=== PATIENT | female | born 1945 | race African-American/Black ===

== ENCOUNTER 2017-11-08 21:29 | Emergency (ER) | payer MEDICARE ==
[~2017-11-08] VITALS: Ht 167.6 cm; Wt 89.0 kg
[~2017-11-08 21:29] MED LIST: AMLO5TAB88; LISI40TA4
[2017-11-09 03:12] VITALS: BP 151/73
== END 2017-11-09 03:22 | disposition home or self-care (01) ==
LOC: ER 22:00
DX: S09.8XXA Other specified injuries of head, initial encounter (principal); F03.90 Unspecified dementia, unspecified severity, without behavioral disturbance, psychotic disturbance, mood disturbance, and anxiety; I10 Essential (primary) hypertension; W01.0XXA Fall on same level from slipping, tripping and stumbling without subsequent striking against object, initial encounter; Y93.9 Activity, unspecified; Y92.9 Unspecified place or not applicable; Z90.710 Acquired absence of both cervix and uterus
CPT/HCPCS: 70450; 72125; 99284

== ENCOUNTER 2022-03-22 10:54 | Emergency (ER) | payer BC, MEDICARE ==
[~2022-03-22] VITALS: Ht 165.1 cm; Wt 82.0 kg
[~2022-03-22 10:54] MED LIST changes: +LISI40TA13; -LISI40TA4
[2022-03-22] MEDS ORDERED: ACETAMINOPHEN 325MG TABLET PO ONE (11:15)
[2022-03-22] MEDS ORDERED: IBUPROFEN 400MG TABLET PO ONE (11:15)
[2022-03-22] MEDS ORDERED: LIDOCAINE 5% PATCH TOP SCH (12:30)
[2022-03-22] MEDS ORDERED: IBUP-2028 MT (12:35)
[2022-03-22] MEDS ORDERED: LIDO1ADH23 TP (12:35)
[2022-03-22] MEDS ORDERED: TOPUD PO (12:35)
[2022-03-22 13:22] VITALS: BP 168/79
== END 2022-03-22 13:23 | disposition home or self-care (01) ==
LOC: ER 10:54
DX: M17.12 Unilateral primary osteoarthritis, left knee (principal); I10 Essential (primary) hypertension; W17.89XA Other fall from one level to another, initial encounter; Y93.89 Activity, other specified; Y92.89 Other specified places as the place of occurrence of the external cause; Y99.8 Other external cause status
CPT/HCPCS: 73552; 73560; 73590; 82962; 99284

== ENCOUNTER 2023-10-03 11:59 | Emergency (ER) | payer MEDICARE, MEDICAID ==
[~2023-10-03] VITALS: Ht 170.2 cm; Wt 73.0 kg
[~2023-10-03 11:59] MED LIST changes: +IBUP-2028 MT; +LIDO1ADH23 TP; +TOPUD PO
[2023-10-03 12:07] VITALS: BP 121/60; PULSE 55; RESP 17; TEMP 98.2; O2SAT 98
== END 2023-10-03 13:00 | disposition left against medical advice (07) ==
LOC: ER 11:59
DX: R00.1 Bradycardia, unspecified (principal); I10 Essential (primary) hypertension; F03.90 Unspecified dementia, unspecified severity, without behavioral disturbance, psychotic disturbance, mood disturbance, and anxiety; Z86.73 Personal history of transient ischemic attack (TIA), and cerebral infarction without residual deficits; Z90.710 Acquired absence of both cervix and uterus
CPT/HCPCS: 99283